=== PATIENT | female | born 1985 | race Caucasian/White ===

== ENCOUNTER 2022-04-05 14:24 | Emergency (ER) | payer MEDICAID ==
[~2022-04-05] VITALS: Ht 154.9 cm; Wt 73.0 kg
[2022-04-05 14:38] VITALS: BP 143/86
== END 2022-04-05 15:11 | disposition home or self-care (01) ==
LOC: ER 14:24
DX: Z00.00 Encounter for general adult medical examination without abnormal findings (principal); I49.9 Cardiac arrhythmia, unspecified
CPT/HCPCS: 93005; 99283